=== PATIENT | male | born 1950 | race Caucasian/White ===

== ENCOUNTER 2019-10-26 21:55 | Inpatient (IN) | payer MEDICARE ==
[~2019-10-26] VITALS: Ht 185.4 cm; Wt 83.0 kg
[2019-10-26 21:57] VITALS: BP 185/110
[2019-10-26 22:40] LABS: ABSOLUTE LYMPHOCYTES 0.3 thou/uL (0.8-5.3); ABSOLUTE MONOCYTES 0.4 thou/uL (0.0-1.2); ABSOLUTE NEUTROPHILS 3.9 thou/uL (1.6-8.1); BASOPHILS 0.4 %; HEMATOCRIT 37.3 % (42.0-52.0); HEMOGLOBIN 13.3 gm/dL (14.0-18.0); LYMPHOCYTES 6.3 %; MCH 34.2 pg (26.0-34.0); MCHC 35.6 g/dL (28.0-37.0); MCV 96.3 fL (80.0-100.0); MONOCYTES 9.3 %; NUCLEATED RBCS 0 /100WBC; PLATELET COUNT* 191 thou/uL (150-400); RBC 3.88 mil/uL (4.50-6.00); RDW-CV 14.4 % (10.5-14.5); WBC 4.6 thou/uL (4.0-11.0)
[2019-10-26 22:45] LABS: CALCIUM 8.7 mg/dL (8.5-10.1); CREATININE 1.1 mg/dL (0.6-1.3); POTASSIUM 3.5 mmol/L (3.5-5.1)
[2019-10-26 22:48] LABS: INR 1.1; PROTIME 11.3 Seconds (9.20-11.50)
[2019-10-26 22:56] LABS: ALBUMIN 3.5 g/dL (3.4-5.0); TOTAL BILIRUBIN 0.3 mg/dL (<0.1-1.0); TOTAL PROTEIN 6.9 g/dL (6.4-8.2)
[2019-10-26 22:57] LABS: INFLUENZA A ANTIGEN Negative (Negative); INFLUENZA B ANTIGEN Negative (Negative)
[2019-10-27 00:39] VITALS: BP 169/89
[2019-10-27 01:00] VITALS: BP 139/69
[2019-10-27 04:00] VITALS: BP 130/77
--- NOTE | 2019-10-27 06:41 | NUR ---
PT HAS BEEN RESTING SINCE [facility]IV[facility]. HE REMAINS ON 2L PER NC OF O2. PT SR ON MONITOR. PT STATED HE WAS FEELING A LITTLE BETTER THIS MORNING.
[2019-10-27 08:05] VITALS: BP 124/69
[2019-10-27 10:16] LABS: URINE BILIRUBIN NEGATIVE (Negative); URINE BLOOD NEGATIVE (Negative); URINE CLARITY CLEAR; URINE COLOR YELLOW; URINE GLUCOSE-RANDOM NEGATIVE (Negative); URINE KETONES NEGATIVE (Negative); URINE LEUKOCYTES-REFLEX NEGATIVE (Negative); URINE NITRITE-REFLEX NEGATIVE (Negative); URINE PROTEIN NEGATIVE (Negative); URINE UROBILINOGEN 0.2 E.U./dl (0.2-1.0)
[2019-10-27] MEDS ORDERED: CEFDINIR300 MG PO (11:28)
[2019-10-27] MEDS ORDERED: PROTONIX40 M2 PO (11:29)
[2019-10-27] MEDS ORDERED: RAYOS5 MG PO (11:30)
[2019-10-27 11:34] VITALS: BP 124/69
[2019-10-27 11:46] VITALS: BP 144/70
--- NOTE | 2019-10-27 12:02 | NUR ---
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
--- NOTE | 2019-10-27 12:42 | NUR ---
PT LEAVING WITH NURSING STAFF TO PERSONAL VECHILE WITH SON @ [id number].
--- NOTE | 2019-10-27 13:00 | NUR ---
Pt is A&O. Resides at home with his son, NAMAN and grandkids. Pt stated that he moved to [place] from [place] in June. Independent. NAMAN cooks and cleans. Pt states that he can drive, but family does majority of the driving. No DME. No hx of HH or SNF. Goal [place] home at [place]. No needs anticipated.
--- NOTE | 2019-10-27 14:06 | EKG ---
[place] [address] ELECTROCARDIOGRAM REPORT Name: NADEENRAFAELA Room: [address] IN M.R.#: [id number] Admission: 10/26/19 Attend Phys: Blayne Carpio Discharge: 10/27/19 Date of : 52 Report #: [id number] THIS REPORT FOR: //name// [facility] ED Test Date: 2019-10-26 Test Time: 22:04:50 Pat Name: RAFAELA SENIOR Department: Room: [facility] Gender: M Premium Representative: [place] : 1950 Requested By: Mague Alcantar Order Number: [id number] MD: Tristan Sanchez Measurements Intervals [place] Rate: 97 P: 92 NC: 172 QRS: 94 QRSD: 115 T: 79 QT: 350 QTc: 445 Interpretive Statements Sinus rhythm Nonspecific intraventricular conduction delay Abnormal inferior Q waves Minimal ST depression, inferior leads No previous ECG available for comparison Electronically Signed On 10-27-2019 14:06:08 SALVAGE ENGINEER by Tristan Sanchez [email or web address] <ELECTRONICALLY SIGNED> By: Tristan Sanchez MD, [facility] 10/27/19 1406 03 Tristan Sanchez MD, [facility] /EPI
== END 2019-10-27 13:07 | disposition home or self-care (01) | DRG 202 ==
LOC: M.ERS 21:55 → M.TBA-ER 23:12 → M.2W 23:12
PROVIDERS: Emergency Medicine; ADMIT Family Medicine
DX: J20.9 Acute bronchitis, unspecified (principal); E87.1 Hypo-osmolality and hyponatremia; F17.210 Nicotine dependence, cigarettes, uncomplicated; B34.9 Viral infection, unspecified; J43.9 Emphysema, unspecified; Z85.038 Personal history of other malignant neoplasm of large intestine; Z85.048 Personal history of other malignant neoplasm of rectum, rectosigmoid junction, and anus; Z91.19 Patient's noncompliance with other medical treatment and regimen; Z71.6 Tobacco abuse counseling; Z79.899 Other long term (current) drug therapy

== ENCOUNTER 2020-11-25 02:21 | Emergency (ER) | payer MEDICARE ==
[~2020-11-25] VITALS: Ht 182.9 cm; Wt 85.3 kg
[~2020-11-25 02:21] MED LIST: CEFDINIR300 MG PO; PROTONIX40 M2 PO; RAYOS5 MG PO
[2020-11-25] MEDS ORDERED: TRAMADOL 50 MG50 MG PO (02:37)
[2020-11-25] MEDS ORDERED: MORPHINE SU0.2 MG/ML PO (02:37)
[2020-11-25] MEDS ORDERED: [UNRECOGNIZED DRUG - OTHER] PO (02:38)
[2020-11-25 02:53] LABS: ABSOLUTE BASOPHILS 0.1 thou/uL (0.0-0.2); ABSOLUTE EOSINOPHILS 0.1 thou/uL (0.0-0.7); ABSOLUTE LYMPHOCYTES 0.8 thou/uL (0.8-5.3); ABSOLUTE MONOCYTES 0.8 thou/uL (0.0-1.2); ABSOLUTE NEUTROPHILS 8.5 thou/uL (1.6-8.1); BASOPHILS 0.5 %; EOSINOPHILS 1.2 %; HEMATOCRIT 33.3 % (42.0-52.0); HEMOGLOBIN 11.4 gm/dL (14.0-18.0); LYMPHOCYTES 7.9 %; MCH 30.9 pg (26.0-34.0); MCHC 34.3 g/dL (28.0-37.0); MCV 90.1 fL (80.0-100.0); MONOCYTES 7.8 %; MPV 6.6 fl. (7.2-11.1); NUCLEATED RBCS 0 /100WBC; PLATELET COUNT* 445 thou/uL (150-400); POLYS 82.6 %; RBC 3.69 mil/uL (4.50-6.00); RDW-CV 13.8 % (10.5-14.5); WBC 10.3 thou/uL (4.0-11.0)
[2020-11-25 03:01] LABS: CALCIUM 8.9 mg/dL (8.5-10.1); CREATININE 0.8 mg/dL (0.6-1.3); POTASSIUM 3.6 mmol/L (3.5-5.1)
[2020-11-25 03:02] LABS: PROTIME 10.7 Seconds (9.20-11.50)
[2020-11-25 03:07] LABS: ALBUMIN 2.6 g/dL (3.4-5.0); TOTAL BILIRUBIN 0.3 mg/dL (<0.1-1.0); TOTAL PROTEIN 6.6 g/dL (6.4-8.2)
[2020-11-25 03:52] LABS: URINE BILIRUBIN NEGATIVE (Negative); URINE BLOOD NEGATIVE (Negative); URINE CLARITY CLEAR; URINE COLOR YELLOW; URINE GLUCOSE-RANDOM NEGATIVE (Negative); URINE KETONES NEGATIVE (Negative); URINE LEUKOCYTES-REFLEX NEGATIVE (Negative); URINE NITRITE-REFLEX NEGATIVE (Negative); URINE PROTEIN 1+ (Negative); URINE SPECIFIC GRAVITY 1.025 (1.005-1.030)
[2020-11-25 08:30] VITALS: BP 147/84
== END 2020-11-25 08:35 | disposition short-term general hospital (02) ==
LOC: M.ERS 02:21
PROVIDERS: Emergency Medicine
DX: L02.211 Cutaneous abscess of abdominal wall (principal); Z79.82 Long term (current) use of aspirin; Z79.899 Other long term (current) drug therapy; Z20.828 Contact with and (suspected) exposure to other viral communicable diseases

== ENCOUNTER 2021-04-07 23:54 | Emergency (ER) | payer MEDICARE ==
[~2021-04-07] VITALS: Ht 182.9 cm; Wt 81.7 kg
[~2021-04-07 23:54] MED LIST changes: +MORPHINE SU0.2 MG/ML PO; +TRAMADOL 50 MG50 MG PO; +[UNRECOGNIZED DRUG - OTHER] PO
[2021-04-08] MEDS ORDERED: CIPRO500 MG/5 M PO (00:10)
[2021-04-08] MEDS ORDERED: TRAZODONE HCL50 MG PO (00:11)
[2021-04-08 01:32] VITALS: BP 129/41
== END 2021-04-08 01:32 | disposition home or self-care (01) ==
LOC: M.ERS 23:54
DX: K46.9 Unspecified abdominal hernia without obstruction or gangrene (principal); L03.311 Cellulitis of abdominal wall; F17.210 Nicotine dependence, cigarettes, uncomplicated; Z87.19 Personal history of other diseases of the digestive system